=== PATIENT | male | born 1985 | race Caucasian/White ===

== ENCOUNTER 2021-01-25 11:29 | Outpatient (CLI) | payer OTHER ==
[2021-01-26 01:05] LABS: SARS-CoV-2 PCR by NAA Not Detected (NotDetected)
== END 2021-01-25 11:30 | disposition home or self-care (01) ==
LOC: CSHLAB 11:29
PROVIDERS: ATTEND Internal Medicine Gastroenterology
DX: Z20.822 Contact with and (suspected) exposure to COVID-19 (principal)
CPT/HCPCS: 87635; U0003; U0005